=== PATIENT | female | born 1960 | race Hispanic/Latino ===

== ENCOUNTER 2018-02-05 09:30 | Outpatient (AMBR) | payer MEDICARE, MEDICAID, SELFPAY ==
--- NOTE | 2018-01-27 14:23 | PTNOTE_ITS ---
PT OP Initial Eval Patient Information Visit Reasons: sciatica Medical Diagnosis: M54.42 G89.4 M51.06 Treatment Dx #1: LBP Start of Care: 01/27/18 Initial Assessment Subjective Pt is 57 yr old female here for LBP that radiates to the L LE down to the L knee since April 2017. Increased pain with bending, lifting and twisting. She lives with her sister in law who drives the pt around. Pt is independent with ADL's. PLOF: she was able to lift things and work around the house, now she doesn't do HH chores. PMH: arthritis, thyroid, speech impediment since stroke 2005 Imaging: none Pt goal: less LBP, to get an MRI of L/S Objective Trunk ArOM: B SB 16 with pain L>R Extension: 40% with pain around L5-S1 on L side Flexion: 10 from floor with increased LBP and posterior thigh pain B rotation: full L SLR ROM: 35 deg with posterior knee neural tension and LBP. L SLR: 70 deg LE strength: L hamstrings: 3+/5 L Quads 4-/5 Hip abd/add 4/5 Oswestry: 62% SLR: positive on L TTP: moderate L paraspinals L2-5, PSIS L>R lumbar paraspinal atrophy Assessment Pt presents with trunk ROM limitations and LBP with radiation to the L knee that limits squatting and bending tolerance. Pt has neural tension along sciatic pathway on L LE. These findings are consistent with lumbar DDD with LE radiculopathy. Pt was taught HEP and given materials. PT recommends further diagnostic imaging of L/S such as X-ray. Pt has expressive aphasia s/p CVA which may be barrier to progress/learning and understanding. Short Term and Correction Goals 1. Ind with HEP 2. Improved L quad and hamstring strength to 4/5 3. Decreased Oswestry to at least 52% 4. Decreased muscle spasm and TTP of lumbar paraspinals from mod to min Treatment Plan 90 day POC in order to complete visits. Pt requires skilled therapy in order to increase strength, decrease pain and address aforementioned impairments. Rx may consist of Therex, Manual therapy, Neuromuscular re-education, Modalities as indicated-moist heat packs, ice packs, mechanical traction, estim Frequency and Duration 2x a week for 6 weeks Certification Dates: 01/27/18 to 04/25/18 Office Procedures PT Procedures PT Date of Service: 01/27/18 OP PT Eval Mod Complex 30 minutes: Yes
--- NOTE | 2018-01-31 11:38 | PT.ODAYNRPT ---
PT Outpatient Daily Note Date of Service: January 31, 2018 OP Daily Note Visit Reasons: sciatica Outpatient Physical Therapy Treatment Date: 01/31/18 Subjective: pt has difficulty with speech so sister in law came in with her but left back to waiting area. Objective: see flow sheet. Assessment: pt in supine on heat with no complaints. pt does ambulate with antalgic gait. once started the exericses pt was not tolerating more than 3 reps each due to c/o pain. pt was in pain with any movement. assisted with bed mobility due to pain. attempted step ups and pt was not able to lift and WB on the LLE. pt was able to lay prone for 1 min and then c/o pain as well. prone press up 5x with slight pain. pt attempted sci-fit for a few mins but was having too much pain of the L side down to her knee. Plan: continue POC per PT. Length of Time (minutes) of Treatment: 30 Minutes Office Procedures PT Outpatient G-Codes Date of Service PT Date of Service: 01/27/18 G-Codes Walking & Moving Around Mobility Current Status G-Code: G8978: CL 60-80% Mobility Status G-Code: G8979: CK 40-60% PT Procedures PT Date of Service: 01/31/18 Therapeutic Exercise 30 minutes: Yes PT Procedures PT Date of Service: 01/27/18 OP PT Eval Mod Complex 30 minutes: Yes
--- NOTE | 2018-02-05 13:03 | PTNOTE_ITS ---
PT OP Progress/Discharge Note Date of Service: February 05, 2018 Progress Note/DC Note Progress Note/Discharge Note: DC Note Patient Information Visit Reasons: sciatica Service Continue Service or Discharge: Discharge Discharge Date: 02/05/18 Status Subjective: Pt has expressive aphasia but is able to express pain and she points to the L knee and thigh as site of pain. Objective: Same as time of evaluation See F/S for therex Assessment: Pt attended evaluation and 2 Rx visits with poor tolerance of therapy interventions. She is unable to participate in any therex for more than 30 seconds due to increased L LE and LBP and she turns to lay on her L side. She was unable to lay supine on the moist heat pack or ride the stationary bike. Pt didn't tolerance the supine position for mechanical traction and doesn' t tolerate manual therapy due to high TTP of L/S. Pt is not likely to benefit from skilled therapy at this time due to increased pain with therapy interventions and should continue with HEP. Plan: Pt is discharged to provider for further workup Office Procedures PT Outpatient G-Codes Date of Service PT Date of Service: 02/05/18 G-Codes Walking & Moving Around Mobility Status G-Code: G8979: CK 40-60% Mobility DC Status G-Code: G8980: CL 60-80% PT Outpatient G-Codes Date of Service PT Date of Service: 01/27/18 G-Codes Walking & Moving Around Mobility Current Status G-Code: G8978: CL 60-80% Mobility Status G-Code: G8979: CK 40-60% PT Procedures PT Date of Service: 01/31/18 Therapeutic Exercise 30 minutes: Yes PT Procedures PT Date of Service: 02/05/18 Therapeutic Exercise 30 minutes: Yes PT Procedures PT Date of Service: 01/27/18 OP PT Eval Mod Complex 30 minutes: Yes
== END 2018-02-24 23:59 | disposition home or self-care (01) ==
PROVIDERS: PCP Nurse Practitioner; Referring Provider Nurse Practitioner; Visit Provider Nurse Practitioner
DX: M54.42 Lumbago with sciatica, left side (principal); G89.4 Chronic pain syndrome; R26.89 Other abnormalities of gait and mobility; I10 Essential (primary) hypertension
CPT/HCPCS: 97110; 97162; G8978; G8979; G8980